=== PATIENT | male | born 1965 | race Caucasian/White ===

== ENCOUNTER 2017-07-05 22:04 | Emergency (ER) | payer OTHER ==
[2017-07-05 22:09] VITALS: BP 150/74; PULSE 64; TEMP 98.1; BMI 31.4
[2017-07-05] MEDS ORDERED: ACETAMINOPHEN 500 MG TABLET (FP) PO ONE (22:49)
[2017-07-05] MEDS ORDERED: CYCLOBENZAPRINE HCL 10 MG TABLET (FP) ONE (22:53)
[2017-07-05] MEDS ORDERED: ACETAMINOPHEN 325 MG TABLET (FP) ONE (22:53)
[2017-07-05] MEDS ORDERED: CYCLOBENZAPRINE HCL 10 MG TABLET (FP) PO ONE (22:54)
--- NOTE | 2017-07-05 22:55 | PDOC ---
History of Present Illness - General Chief Complaint: Injury Stated Complaint: ANKLE INJURY Time Seen by Provider: 07/05/17 22:43 History Source: Patient Exam Limitations: No Limitations - History of Present Illness Initial Comments: 07/05/17 22:50 Patient is a 52-year-old male with history of left knee meniscal tear, cholecystectomy, here with complaint of right ankle pain, left shoulder pain, left knee pain since 6 PM. States he twisted his right ankle and fell on his left knee and left shoulder. He took Toradol by mouth prior to emergency room visit still has pain about 8/10, throbbing and is worse with movement PMD: PMHX: as above PSOCHX: neg cig, drug, etoh ALL: NKDA GENERAL/CONSTITUTIONAL: [No fever or chills. No weakness. No weight change.] HEAD, EYES, EARS, NOSE AND THROAT: [No change in vision. No ear pain or discharge. No sore throat.] CARDIOVASCULAR: [No chest pain or shortness of breath.] RESPIRATORY: [No cough, wheezing, or hemoptysis.] GASTROINTESTINAL: [No nausea, vomiting, diarrhea or constipation. No rectal bleeding.] GENITOURINARY: [No dysuria, frequency, or change in urination.] MUSCULOSKELETAL: [(+) joint or muscle swelling or pain. No neck or back pain.] SKIN AND BREASTS: [No rash or easy bruising.] NEUROLOGIC: [No headache, vertigo, loss of consciousness, or loss of sensation.] PSYCHIATRIC: [No depression or anxiety.] ENDOCRINE: [No increased thirst. No abnormal weight change.] HEMATOLOGIC/LYMPHATIC: [No anemia, easy bleeding, or history of blood clots.] ALLERGIC/IMMUNOLOGIC: [No hives or skin allergy. No latex allergy.] GENERAL: [The patient is awake, alert, and fully oriented, in no acute distress. ] HEAD: [Normal with no signs of trauma.] EYES: [Pupils equal, round and reactive to light, extraocular movements intact, sclera anicteric, conjunctiva clear.] ENT: [Ears normal, nares patent, oropharynx clear without exudates. Moist mucous membranes.] NECK: [Normal range of motion, supple without lymphadenopathy, JVD, or masses.] LUNGS: [Breath sounds equal, clear to auscultation bilaterally. No wheezes, and no crackles.] HEART: [Regular rate and rhythm, normal S1 and S2 without murmur, rub.] ABDOMEN: [Soft, nontender, normoactive bowel sounds. No guarding, no rebound. No masses.] EXTREMITIES: Decreased range of motion, swelling lateral mal, tenderness to palpation over lateral malleolus right ankle. Abrasions and ecchymosis to the left knee, Normal range of motion,, tenderness over the left shoulder joint space, decreased range of motion, no edema extremity. No clubbing or cyanosis. No cords, erythema, or tenderness.] NEUROLOGICAL: [Cranial nerves II through XII grossly intact. Normal speech, normal gait.] PSYCH: [Normal mood, normal affect.] SKIN: [Warm, Dry, normal turgor, no rashes or lesions noted.] Past History - Past Medical History Allergies/Adverse Reactions: Allergies Allergy/AdvReac Type Severity Reaction Status Date / Time No Known Allergies Allergy Verified 07/05/17 22:06 Home Medications: Ambulatory Orders NK [No Known Home Medication] 04/16/16 COPD: No - Surgical History Cholecystectomy: Yes - Immunization History Immunization Up to Date: Yes - Suicide/Smoking/Psychosocial Hx Smoking History: Never smoked Hx Alcohol Use: No Drug/Substance Use Hx: No Substance Use Type: None Hx Substance Use Treatment: No Trauma Specific PMHX - Complaint Specific PMHX Arthritis: No *Physical Exam - Vital Signs Last Vital Signs Temp Pulse Resp BP Pulse Ox 98.1 F 64 16 150/74 98 07/05/17 22:06 07/05/17 22:06 07/05/17 22:06 07/05/17 22:06 07/05/17 22:06 ED Treatment Course - RADIOLOGY Radiology Studies Ordered: Category Date Time Status ANKLE & FOOT-RIGHT* [RAD] Stat Radiology 07/05/17 22:46 Ordered KNEE 3 POS-LEFT [RAD] Stat Radiology 07/05/17 22:46 Ordered SHOULDER-LEFT [RAD] Stat Radiology 07/05/17 22:46 Ordered Medical Decision Making - Medical Decision Making 07/05/17 23:26 Patient is a 52-year-old male with history of left knee meniscal tear, cholecystectomy, here with complaint of right ankle pain, left shoulder pain, left knee pain since 6 PM, consistent with ankle sprain right right, left shoulder sprain, abrasions to left knee. Patient took Toradol prior to visit. Will treat with Flexeril and Tylenol and instructed to follow-up with Shreya nielsen neg for fracture, (+) DJD I discussed the physical exam findings, ancillary test results and final diagnoses with the patient. I answered all of the patient's questions. The patient was satisfied with the care received and felt comfortable with the discharge plan and treatment plan. The Patient agrees to follow up with the primary care physician within 24-72 hours. *DC/Admit/Observation/Transfer Diagnosis at time of Disposition: Ankle sprain Qualifiers: Encounter type: initial encounter Involved ligament of ankle: unspecified ligament Laterality: right Qualified Code(s): S93.401A - Sprain of unspecified ligament of right ankle, initial encounter Shoulder strain Qualifiers: Encounter type: initial encounter Laterality: left Qualified Code(s): S46.912A - Strain of unspecified muscle, fascia and tendon at shoulder and upper arm level, left arm, initial encounter Abrasion of knee, left Qualifiers: Encounter type: initial encounter Qualified Code(s): S80.212A - Abrasion, left knee, initial encounter - Discharge Dispostion Disposition: HOME Condition at time of disposition: Stable - Referrals Referrals: Clovis Otero MD [Primary Care Provider] - Armin Garcia MD [Staff Physician] - - Patient Instructions Additional Instructions: Your Discharge Instructions: You must call primary care physician within 24 hours to arrange follow-up. Return to the Emergency Department with any new, persistent or worsening symptoms, for fever, chills, SOB, dizziness or any other concerning changes that may occur. He was follow-up with orthopedist if symptoms are not resolved within a week. - Post Discharge Activity
[2017-07-05] MEDS ORDERED: CYCLOBENZAPRINE HCL 5 MG TABLET PO SCH (23:00)
== END 2017-07-05 23:40 | disposition home or self-care (01) ==
LOC: JER 22:04 → JERFT 22:04 → JER 23:40
DX: S93.401A Sprain of unspecified ligament of right ankle, initial encounter (principal); S46.812A Strain of other muscles, fascia and tendons at shoulder and upper arm level, left arm, initial encounter; S80.212A Abrasion, left knee, initial encounter; W18.39XA Other fall on same level, initial encounter; Y93.89 Activity, other specified; Y92.414 Local residential or business street as the place of occurrence of the external cause
CPT/HCPCS: 73030-TC-LT; 73562-TC-LT; 73610-TC-RT; 73630-TC-RT; 99283-25

== ENCOUNTER 2018-09-04 12:44 | Emergency (ER) | payer OTHER ==
[2018-09-04 12:54] VITALS: BP 164/78; PULSE 62; TEMP 98.2; BMI 31.9
[2018-09-04] MEDS ORDERED: ACETAMINOPHEN 500 MG TABLET (FP) PO ONE (13:10)
[2018-09-04] MEDS ORDERED: ACETAMINOPHEN 500 MG TABLET (FP) ONE (13:12)
--- NOTE | 2018-09-04 13:15 | PDOC ---
History of Present Illness - General Chief Complaint: Injury Stated Complaint: FALL/INJURY Time Seen by Provider: 09/04/18 13:05 History Source: Patient Exam Limitations: No Limitations - History of Present Illness Initial Comments: 09/04/18 13:11 53 year old male with surgical history of cholecystectomy and no significant medical history present with complaints of pain to left wrist and left rib after slip and fall this afternoon. Patient states slipped and fell backwards on ice hitting his head with no loc or disorientation. States feels soreness at the back or his head. Occurred: reports: just prior to arrival Severity: reports: mild Pain Location: reports: back, upper extremity Method of Injury: Yes: fall Modifying Factors: improves with: other (no intervention yet ) Loss of Consciousness: no loss of consciousness Associated Symptoms (Fall): neck pain Past History - Travel Traveled outside of the country in the last 30 days: Yes Close contact w/someone who was outside of country & ill: No - Past Medical History Allergies/Adverse Reactions: Allergies Allergy/AdvReac Type Severity Reaction Status Date / Time No Known Allergies Allergy Verified 09/04/18 12:47 Home Medications: Ambulatory Orders Ibuprofen [Ibu] 600 mg PO TID #20 tablet 09/04/18 COPD: No - Surgical History Cholecystectomy: Yes - Immunization History Immunization Up to Date: Yes - Suicide/Smoking/Psychosocial Hx Smoking History: Never smoked Hx Alcohol Use: No Drug/Substance Use Hx: No Substance Use Type: None Hx Substance Use Treatment: No Trauma Specific PMHX - Complaint Specific PMHX Arthritis: No Back Injury: No Neck Injury: No Hx Sacro Iliac Joint Dysfunction: No Review of Systems - Review of Systems Able to Perform ROS?: Yes Is the patient limited Greek proficient: No Constitutional: No: Chills, Fever, Loss of Appetite HEENTM: No: Blurred Vision Respiratory: No: Shortness of Breath, Stridor, Wheezing Cardiac (ROS): No: Chest Pain, Lightheadedness, Palpitations ABD/GI: No: Nausea : No: Dysuria, Incontinence Musculoskeletal: Yes: Neck Pain. No: Joint Pain, Muscle Weakness Integumentary: No: Bruising, Erythema, Flushing Neurological: No: Numbness, Paresthesia *Physical Exam - Vital Signs Last Vital Signs Temp Pulse Resp BP Pulse Ox 98.2 F 62 17 164/78 97 09/04/18 12:47 09/04/18 12:47 09/04/18 12:47 09/04/18 12:47 09/04/18 12:47 - Physical Exam General Appearance: Yes: Nourished, Appropriately Dressed HEENT: positive: VANIA, TMs Normal, Pharynx Normal Neck: positive: Supple. negative: Lymphadenopathy (R), Lymphadenopathy (L) Respiratory/Chest: positive: Lungs Clear, Normal Breath Sounds. 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 intact, Fully Oriented, Alert Moderate Sedation - Procedure Monitoring Vital Signs: Procedure Monitoring Vital Signs Temperature 98.2 F 09/04/18 12:47 Pulse Rate 62 09/04/18 12:47 Respiratory Rate 17 09/04/18 12:47 Blood Pressure 164/78 09/04/18 12:47 O2 Sat by Pulse Oximetry (%) 97 09/04/18 12:47 Medical Decision Making - Medical Decision Making 09/04/18 13:17 53 year old male with surgical history of cholecystectomy and no significant medical history present with complaints of pain to left wrist and left rib after slip and fall this afternoon Plan xray of wrist and rib analgesia *DC/Admit/Observation/Transfer Diagnosis at time of Disposition: Musculoskeletal pain - Discharge Dispostion Disposition: HOME Decision to Admit order: No - Prescriptions Prescriptions: Ibuprofen [Ibu] 600 mg PO TID #20 tablet - Referrals Referrals: Clovis Otero MD [Primary Care Provider] - 2 Days - Patient Instructions Printed Discharge Instructions: How to Prevent Falls, DI for Concussion Additional Instructions: May use ice compress on areas for 20 minutes per day x 3 days I dizzinesss, nausea or vomiting return to ed Print Language: CROATIAN - Post Discharge Activity Forms/Work/School Notes: Back to Work
== END 2018-09-04 14:21 | disposition home or self-care (01) ==
LOC: JER 12:44 → JERFT 12:44
DX: S09.8XXA Other specified injuries of head, initial encounter (principal); M25.532 Pain in left wrist; R07.89 Other chest pain; W00.0XXA Fall on same level due to ice and snow, initial encounter; Y93.89 Activity, other specified; Y92.89 Other specified places as the place of occurrence of the external cause; Y99.8 Other external cause status
CPT/HCPCS: 71101-TC-LT-FY; 73110-TC-LR-FY; 73130-TC-LT-FY; 99281-25

== ENCOUNTER 2019-02-23 19:27 | Emergency (ER) | payer OTHER ==
[2019-02-23 19:36] VITALS: BP 136/76; PULSE 60; TEMP 98.2; BMI 33.3
[2019-02-23] MEDS ORDERED: DIPHTH,PERTUSS(ACELL),TET 0.5 ML DISP.SYRIN IM ONE ×2 (19:38→23:07)
--- NOTE | 2019-02-23 19:39 | PDOC ---
Rapid Medical Evaluation Chief Complaint: Eye Problem Time Seen by Provider: 02/23/19 19:36 Medical Evaluation: Allergies Allergy/AdvReac Type Severity Reaction Status Date / Time No Known Allergies Allergy Verified 02/23/19 19:36 Vital Signs Temp Pulse Resp BP Pulse Ox 98.2 F 60 18 136/76 98 02/23/19 19:33 02/23/19 19:33 02/23/19 19:33 02/23/19 19:33 02/23/19 19:33 02/23/19 19:38 I have performed a brief in-person evaluation of this patient. The patient presents with a chief complaint of: sent from [facility] for eval of right eye/ forehead injury- struck/ abraded forehead- eye was not impaled/ + scraped Pertinent physical exam findings: eye injected but vision WNL I have ordered the following: Boostrix The patient will proceed to the ED for further evaluation. 02/23/19 20:06 Discharge Disposition - Diagnosis Eyeball contusion - Referrals - Patient Instructions - Post Discharge Activity
--- NOTE | 2019-02-23 20:30 | PDOC ---
History of Present Illness - General Chief Complaint: Eye Problem Stated Complaint: SENT BY URGENT CARE Time Seen by Provider: 02/23/19 19:36 History Source: Patient Exam Limitations: No Limitations - History of Present Illness Initial Comments: 02/23/19 20:09 HISTORY OF PRESENT ILLNESS: 54-year-old male denies medical history presents emergency department for evaluation of left eye pain and subconjunctival hemorrhage after contact with [employer]. Patient states was working outside in his [employer] fence which had exposed pointed edges. Patient turned his head to look to the right when he returned back to the left for The fence was their striking him in the left orbit. Patient is unsure if he had any penetrating trauma to his globe but was concerned when he saw subconjunctival hemorrhage. Patient presented to urgent care who referred to the emergency department for imaging and potential ophthalmologic evaluation. No recent travel or sick contacts. PAST MEDICAL HISTORY: Denies past medical history SURGICAL HISTORY: Denies ALLERGIES: No known drug allergies REVIEW OF SYSTEMS General/Constitutional: Denies fever or chills. Denies weakness, weight change. HEENT: see HPI Cardiovascular: Denies chest pain or shortness of breath. Respiratory: Denies cough, wheezing, or hemoptysis. Gastrointestinal: Denies nausea, vomiting, diarrhea or constipation. Denies rectal bleeding. Genitourinary: Denies dysuria, frequency, or change in urination. Musculoskeletal: Denies joint or muscle swelling or pain. Denies neck or back pain. Skin and breasts: Denies rash or easy bruising. Neurologic: Denies headache, vertigo, loss of consciousness, or loss of sensation. Psychiatric: Denies depression or anxiety. Endocrine: Denies increased thirst. Denies abnormal weight change. Hematologic/Lymphatic: Denies anemia, easy bleeding, or history of blood clots. Allergic/Immunologic: Denies hives or skin allergy. Denies latex allergy. PHYSICAL EXAM General Appearance: Well-appearing, appropriately dressed. No apparent distress , no intoxication. HEENT: EOMI, PERRLA, normal ENT inspection, normal voice, TMs normal, pharynx normal. No conjunctival pallor. No photophobia, scleral icterus. Subconjunctival hemorrhage present in the left thigh at the 4 o'clock position. No hyphema present. Red reflex is within normal limits. Visual acuity 20/20 right eye, left eye, both eyes. Uncorrected. No pupillary deformity present. Neck: Supple. Trachea midline. No tenderness, rigidity, carotid bruit, stridor , lymphadenopathy, or thyromegaly. Respiratory/Chest: Lungs CTAB. No shortness of breath, chest tenderness, respiratory distress, accessory muscle use. No crackles, rales, rhonchi, stridor , wheezing, dullness Cardiovascular: RRR. S1, S2. No JVD, murmur, bradycardia, tachycardia. Musculoskeletal/Extremities: Normal inspection. FROM of all extremities, normal capillary refill. Pelvis Stable. No CVA tenderness. No tenderness to extremities, pedal edema, swelling, erythema or deformity. Integumentary: Appropriate color, dry, warm. 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 Fully oriented, alert. Appropriate mood/affect. Motor strength 5/5. No appreciable EOM palsy, facial droop or sensory deficit. 02/23/19 20:09 Past History - Past Medical History Allergies/Adverse Reactions: Allergies Allergy/AdvReac Type Severity Reaction Status Date / Time No Known Allergies Allergy Verified 02/23/19 19:36 Home Medications: Ambulatory Orders Ibuprofen [Ibu] 600 mg PO TID #20 tablet 09/04/18 COPD: No - Surgical History Cholecystectomy: Yes - Immunization History Immunization Up to Date: Yes - Suicide/Smoking/Psychosocial Hx Smoking History: Never smoked Hx Alcohol Use: No Drug/Substance Use Hx: No Substance Use Type: None Hx Substance Use Treatment: No *Physical Exam - Vital Signs Last Vital Signs Temp Pulse Resp BP Pulse Ox 98.2 F 60 18 136/76 98 02/23/19 19:33 02/23/19 19:33 02/23/19 19:33 02/23/19 19:33 02/23/19 19:33 ED Treatment Course - RADIOLOGY Radiology Studies Ordered: Category Date Time Status ORBIT CT W/O CONTRAST [CT] Stat CT Scan 02/23/19 20:07 Ordered Medical Decision Making - Medical Decision Making 02/23/19 20:30 A/P: 54-year-old male with eye trauma Boostrix Low suspicion for globe injury the patient was sent from urgent care center specifically for evaluation of globe rupture. CT of the orbits Reassess 02/23/19 23:03 CT as read by Dr. Michelle: The ocular globes appear intact (which does not completely exclude the possibility of ocular injury and.) No anterior orbital hematoma or edema is visualized. Extract the muscles and optic nerve sheath complexes demonstrate no definite noncontrast pathology. No intraorbital irritation lesion is seen. There is no CT evidence of acute fracture. We'll discharge the patient home to follow-up with ophthalmology within the next 3 days for evaluation. I discussed the physical exam findings, ancillary test results and final diagnoses with the patient. I answered all of the patient's questions. The patient was satisfied with the care received and felt comfortable with the discharge plan and treatment plan. The patient will call their primary care physician within 24 hours to arrange follow-up and will return to the Emergency Department with any new, persistent or worsening symptoms. *DC/Admit/Observation/Transfer Diagnosis at time of Disposition: Subconjunctival hemorrhage of left eye - Discharge Dispostion Disposition: HOME Condition at time of disposition: Stable Decision to Admit order: No - Referrals Referrals: Clovis Otero MD [Primary Care Provider] - Elijah Charles MD [Staff Physician] - - Patient Instructions Additional Instructions: Your CAT scan today showed no eye injury. 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 Make an appointment for evaluation within the next 48 hours Return to the emergency department for any new or worsening symptoms. Thank you very much for choosing us to provide your emergent health care needs.. - Post Discharge Activity
== END 2019-02-23 23:10 | disposition home or self-care (01) ==
LOC: JERFT 19:27
DX: H11.32 Conjunctival hemorrhage, left eye (principal)
CPT/HCPCS: 70480-TC; 99281-25

== ENCOUNTER 2019-04-20 13:54 | Emergency (ER) | payer OTHER ==
[2019-04-20] MEDS ORDERED: IBUPROFEN 600 MG TABLET (FP) PO ONE ×2 (13:58→14:09)
--- NOTE | 2019-04-20 13:58 | PDOC ---
Rapid Medical Evaluation Time Seen by Provider: 04/20/19 13:56 Medical Evaluation: Allergies Allergy/AdvReac Type Severity Reaction Status Date / Time No Known Allergies Allergy Verified 02/23/19 19:36 04/20/19 13:57 Pt presents after a mechanical trip and fall this morning and states he twisted his L ankle and knee. Didn't take any medicine for pain at home Exam: walking with crutch, NAD. Decreased ROM in L ankle d/t pain Orders: X-ray Pt to proceed to the ER for further evaluation Discharge Disposition - Diagnosis Ankle pain Qualifiers: Chronicity: acute Laterality: left Qualified Code(s): M25.572 - Pain in left ankle and joints of left foot - Referrals - Patient Instructions - Post Discharge Activity
[2019-04-20 13:59] VITALS: BP 133/73; PULSE 67; TEMP 97.8; BMI 32.9
--- NOTE | 2019-04-20 15:01 | PDOC ---
History of Present Illness - General Chief Complaint: Injury Stated Complaint: INJURY Time Seen by Provider: 04/20/19 13:56 - History of Present Illness Initial Comments: 04/20/19 14:56 CHIEF COMPLAINT: ankle and knee pain HISTORY OF PRESENT ILLNESS: 54 yo M with no PMH presents to fast track with pain to L ankle and knee. Patient states he slipped and fell and his foot " went backwards and so did my knee." Patient denies any trauma to head or LOC. Denies injury to any other part of the body. Patient is ambulatory in the ER. No recent travel or sick contacts. PAST MEDICAL HISTORY: Denies past medical history FAMILY HISTORY: Denies SOCIAL HISTORY: Denies tobacco, alcohol, illicit drug use. SURGICAL HISTORY: Denies ALLERGIES: No known drug allergies REVIEW OF SYSTEMS General/Constitutional: Denies fever or chills. Denies weakness, weight change. HEENT: Denies change in vision. Denies ear pain or discharge. Denies sore throat. Cardiovascular: Denies chest pain or shortness of breath. Respiratory: Denies cough, wheezing, or hemoptysis. Gastrointestinal: Denies nausea, vomiting, diarrhea or constipation. Denies rectal bleeding. Genitourinary: Denies dysuria, frequency, or change in urination. Musculoskeletal: Pain to L knee. Skin and breasts: Denies rash or easy bruising. Neurologic: Denies headache, vertigo, loss of consciousness, or loss of sensation. PHYSICAL EXAM General Appearance: Well-appearing, appropriately dressed. No apparent distress , no intoxication. HEENT: EOMI, PERRLA, normal ENT inspection, normal voice, TMs normal, pharynx normal. No conjunctival pallor. No photophobia, scleral icterus. Neck: Supple. Trachea midline. No tenderness, rigidity, carotid bruit, stridor , lymphadenopathy, or thyromegaly. Respiratory/Chest: Lungs CTAB. No shortness of breath, chest tenderness, respiratory distress, accessory muscle use. No crackles, rales, rhonchi, stridor , wheezing, dullness Cardiovascular: RRR. S1, S2. No JVD, murmur, bradycardia, tachycardia. Vascular Pulses: Dorsalis-Pedis (R): 2+, Dorsalis-Pedis (L): 2+ Gastrointestinal/Abdominal: Normal bowel sounds. Abdomen soft, non-distended. No tenderness or rebound tenderness. No organomegaly, pulsatile mass, guarding , hernia, hepatomegaly, splenomegaly. Lymphatic: No adenopathy, tenderness. Musculoskeletal/Extremities: Tenderness and developing ecchymosis to L anterior knee. Tenderness to L lateral malleolus. No deformity, sensation intact. Normal inspection. FROM of all extremities, normal capillary refill. Pelvis Stable. No CVA tenderness. No tenderness to extremities, pedal edema, swelling , erythema or deformity. Integumentary: Appropriate color, dry, warm. 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 Fully oriented, alert. Appropriate mood/affect. Motor strength 5/5. No appreciable EOM palsy, facial droop or sensory deficit. Past History - Past Medical History Allergies/Adverse Reactions: Allergies Allergy/AdvReac Type Severity Reaction Status Date / Time No Known Allergies Allergy Verified 04/20/19 13:59 Home Medications: Ambulatory Orders Ibuprofen [Ibu] 600 mg PO TID #20 tablet 09/04/18 Ibuprofen 600 mg PO QID #30 tablet 04/20/19 COPD: No - Surgical History Cholecystectomy: Yes - Immunization History Immunization Up to Date: Yes - Suicide/Smoking/Psychosocial Hx Smoking History: Never smoked Have you smoked in the past 12 months: No Information on smoking cessation initiated: No Hx Alcohol Use: No Drug/Substance Use Hx: No Substance Use Type: None Hx Substance Use Treatment: No *Physical Exam - Vital Signs Last Vital Signs Temp Pulse Resp BP Pulse Ox 97.8 F 67 16 133/73 100 04/20/19 13:57 04/20/19 13:57 04/20/19 13:57 04/20/19 13:57 04/20/19 13:57 ED Treatment Course - Medications Given in the ED: ED Medications Discontinued Medications Generic Name Dose Route Start Last Admin Trade Name Freq PRN Reason Stop Dose Admin Ibuprofen 600 mg 04/20/19 13:58 04/20/19 14:13 Motrin - PO 04/20/19 13:59 600 mg ONCE ONE Administration Medical Decision Making - Medical Decision Making 04/20/19 15:00 54 yo M with no PMH presents to fast track with pain to L ankle and knee. -x-ray knee and ankle 04/20/19 15:49 x-ray negative for fracture. -crutches, knee immobilizer advised patient to f/u with ortho if symptoms persist and of signs and symptoms for return to ER; patient verbalized understanding and agrees to plan. *DC/Admit/Observation/Transfer Diagnosis at time of Disposition: Ankle pain Qualifiers: Chronicity: acute Laterality: left Qualified Code(s): M25.572 - Pain in left ankle and joints of left foot Knee pain Qualifiers: Chronicity: acute Laterality: left Qualified Code(s): M25.562 - Pain in left knee - Discharge Dispostion Disposition: HOME Condition at time of disposition: Stable Decision to Admit order: No - Prescriptions Prescriptions: Ibuprofen 600 mg PO QID #30 tablet - Referrals Referrals: Clovis Otero MD [Primary Care Provider] - Cliff Johnson DO [Staff Physician] - - Patient Instructions Printed Discharge Instructions: How To Perform RICE (Rest, Ice, Compress, Elevate), DI for Knee Pain Additional Instructions: Please take medications as prescribed. Follow up with orthopedics if symptoms persist past 1 week. If you develop any new or worsening pain, please return to the ER immediately. - Post Discharge Activity Forms/Work/School Notes: Back to Work
== END 2019-04-20 15:40 | disposition home or self-care (01) ==
LOC: JERFT 13:54
DX: M25.572 Pain in left ankle and joints of left foot (principal); W01.0XXA Fall on same level from slipping, tripping and stumbling without subsequent striking against object, initial encounter; Y93.89 Activity, other specified; Y92.89 Other specified places as the place of occurrence of the external cause; M25.562 Pain in left knee
CPT/HCPCS: 73562-TC-LT-FY; 73610-TC-LT-FY; 73630-TC-LT; 99282-25

== ENCOUNTER 2023-08-31 21:18 | Emergency (ER) | payer OTHER ==
[2023-08-31 21:42] VITALS: BP 135/76; PULSE 88; RESP 16; TEMP 100.6; BMI 32.4
[2023-08-31] MEDS ORDERED: SULFAMETHOXAZOLE/TRIMETHOPRIM 800MG/160MG D.S. TABLET PO ONE (22:53)
[2023-08-31] MEDS ORDERED: ACETAMINOPHEN 500 MG TABLET (FP) PO ONE (22:54)
[2023-08-31] MEDS ORDERED: SULFAMETHOXAZOLE/TRIMETHOPRIM 800MG/160MG D.S. TABLET ONE (23:01)
[2023-08-31] MEDS ORDERED: ACETAMINOPHEN 500 MG TABLET (FP) ONE (23:01)
== END 2023-08-31 23:05 | disposition home or self-care (01) ==
LOC: FER 21:18
DX: R30.0 Dysuria (principal); R35.0 Frequency of micturition; R39.15 Urgency of urination; R31.9 Hematuria, unspecified; N30.90 Cystitis, unspecified without hematuria; R10.30 Lower abdominal pain, unspecified
CPT/HCPCS: 81003; 81015; 87086; 87186; 99283-25

== ENCOUNTER 2023-10-22 23:10 | Emergency (ER) | payer OTHER ==
[2023-10-22] MEDS ORDERED: LIDOCAINE VISCOUS 2% ORAL/TOP 100 ML BOTTLE ONE (23:16)
[2023-10-22 23:23] VITALS: RESP 16; BMI 32.4
[2023-10-22] MEDS: LIDOCAINE VISCOUS 2% ORAL/TOP 100 ML BOTTLE MM ONE (23:25)
[2023-10-22 23:28] VITALS: BP 138/64; PULSE 64; TEMP 98.6
[2023-10-22] MEDS: DOXYCYCLINE HYCLATE 100 MG CAPSULE PO ONE (23:30)
[2023-10-22] MEDS ORDERED: DOXYCYCLINE HYCLATE 100 MG CAPSULE PO ONE (23:30)
== END 2023-10-22 23:40 | disposition home or self-care (01) ==
LOC: FER 23:10
DX: S30.861A Insect bite (nonvenomous) of abdominal wall, initial encounter (principal); W57.XXXA Bitten or stung by nonvenomous insect and other nonvenomous arthropods, initial encounter
CPT/HCPCS: 99283-25

== ENCOUNTER 2023-11-24 00:01 | Emergency (ER) | payer OTHER ==
[2023-11-24] MEDS ORDERED: DOXYCYCLINE HYCLATE 100 MG CAPSULE PO ONE (00:07)
[2023-11-24 00:10] VITALS: BP 150/87; PULSE 56; RESP 16; TEMP 97.8; BMI 33.5
[2023-11-24] MEDS: DOXYCYCLINE HYCLATE 100 MG CAPSULE PO ONE (00:10)
== END 2023-11-24 00:12 | disposition home or self-care (01) ==
LOC: FER 00:01
DX: S20.469A Insect bite (nonvenomous) of unspecified back wall of thorax, initial encounter (principal); W57.XXXA Bitten or stung by nonvenomous insect and other nonvenomous arthropods, initial encounter
CPT/HCPCS: 99283-25